=== PATIENT | female | born 1945 | race Caucasian/White ===

== ENCOUNTER 2017-12-31 09:04 | Day surgery (SDC) | payer MEDICARE, SELFPAY ==
--- NOTE | 2017-12-30 09:25 | POEE_ITS ---
History of Present Illness Chief Complaint: Progressive decreased vision, left eye Narrative: The patient is a 72-year-old female with history of progressive decreased vision in both eyes at both distance and near. She notes significant difficulty with glare. On examination she was noted to have moderate bilateral nuclear cataracts with best corrected vision of 20/50 OD, 20/50 OS. The option of cataract surgery was offered to the patient and she wished to proceed. NOTE: The Chief Complaint, HPI, Past Medical History, Past Surgical History, Family History, Social History, Medications, and complete Ophthalmic Exam with detailed Assessment and Plan have already been documented in the patient's outpatient ophthalmic record and are not covered again in detail here. [facility] Medical History Nuclear sclerotic cataract of left eye (Acute) Meds Home Medications Medication Instructions Recorded Confirmed Type albuterol sulfate 2.5 mg INHALATION PRN PRN 12/25/17 12/26/17 History albuterol sulfate [Ventolin HFA] 2 puff INHALATION QID 12/25/17 12/26/17 History aspirin [Aspir-Low] 81 mg PO DAILY 12/25/17 12/26/17 History lisinopril 40 mg PO DAILY 12/25/17 12/26/17 History nicotine 1 patch TRANSDERMAL DAILY 12/25/17 12/26/17 History nitroglycerin 0.4 mg SUBLINGUAL DIRECTED PRN 12/25/17 12/26/17 History Allergies Allergy/AdvReac Type Severity Reaction Status Date / Time No Known Allergies Allergy Unverified 12/25/17 09:36 Exam OCULAR EXAM:: Visual acuity at distance: Best corrected visual acuity 20/50 right eye, 20/50 left eye. Pupils: Pupils equal, round, and reactive without afferent pupillary defect IOP: 18 OD, 16 OS. Extraocular Motility: Normal Pertinent Slit Lamp Findings: Significant for 2+ nuclear cataracts OU. Pupils dilate to 5 mm OU. Dilated Funduscopic Examination: Disc cupping is 0.3 OU with normal vessels. There are fine drusen in both maculas with pigmentary changes. Peripheral retina and vitreous is normal OU. BRIGHTNESS ACUITY TESTING (BAT):: Off left eye 20/50 Low: 20/80 Medium: 20/100 High: 20/200 Assessment and Plan (1) Nuclear sclerotic cataract of left eye: Current visit: No Status: Acute Assessment: Visually significant cataract, left eye. Plan: Cataract extraction with intraocular lens implantation, left eye Note: NOTE:: The details of the planned surgery, including the risks, indications, limitations,expectations,outcome and possible complications were explained to the patient. The patient understands the complications including, but not limited to: infection, hemorrhage, posterior dislocation of the lens or nuclear fragments which may require the intervention of a vitreoretinal surgeon, possible loss of the eye, or from anesthetic complications. The patient has been made aware of the option of not having surgery, that vision following surgery may not be equal to that prior to surgery, and that the planned surgery may not achieve the intended results. Following this discussion, which the patient appeared to understand, the patient wishes to proceed with cataract surgery with lens implantation of the affected eye to improve and maximize vision.
[2017-12-31 09:20] VITALS: BP 156/87; PULSE 80; RESP 21; TEMP 36.9; O2SAT 98
[2017-12-31] MEDS: Lidocaine 2% Jelly 6 ML SYR (10:15)
[2017-12-31] MEDS: Lidocaine 1% Pres-Free 5 ML VIAL (10:18)
[2017-12-31] MEDS: Balanced Salt Soln.-PLUS 500 ML BAG (10:18)
[2017-12-31] MEDS: Povidone-Iodine Ophth 30 ML BTL (10:31)
--- NOTE | 2017-12-31 10:39 | W.PM.DSUDISC ---
Discharge Plan Discharge Details Attending Provider: Mitchell Umaña Primary Care Provider: Regina Murguia Home Meds and New Rx's Prescriptions: No Action aspirin [Aspir-Low] 81 mg Tablet,Delayed Release (Dr/Ec) 81 mg PO DAILY RF: 0 nicotine 21 mg/24 hr Patch 24 Hour 1 patch TRANSDERMAL DAILY RF: 0 nitroglycerin 0.4 mg Tablet, Sublingual 0.4 mg SUBLINGUAL DIRECTED PRNRF: 0 albuterol sulfate [Ventolin HFA] 90 mcg/actuation Hfa Aerosol Inhaler 2 puff INHALATION QID RF: 0 lisinopril 40 mg Tablet 40 mg PO DAILY RF: 0 albuterol sulfate 2.5 mg/0.5 mL Solution For Nebulization 2.5 mg INHALATION PRN PRNRF: 0 Discharge Instructions Stand Alone Forms: Post-op Topical Cataract, Galdino Ganey (DSU) DS: Diagnosis Discharge Diagnosis (1) Nuclear sclerotic cataract of left eye: Status: Resolved (2) Status post cataract extraction and insertion of intraocular lens of left eye: Status: Chronic
--- NOTE | 2017-12-31 10:40 | W.PM.OP ---
Date of service: 12/31/17 Time of Service: 10:40 Operative Note DATE OF PROCEDURE: 12/31/17 PRE-OP DIAGNOSIS: Cataract, left eye POST-OP DIAGNOSIS: same PROCEDURE: Cataract extraction using phacoemulsification with intraocular lens implant, left eye SURGEON: Mitchell Umaña ANESTHESIA: MAC and local (sub-tenon's anesthetic infiltration) PATHOLOGY: none sent COMPLICATIONS: None Patient was transported to: same day Patient's condition: stable Implants: Michael [employer] Michael [employer] / [employer] Tecnis [id number] Indications: Progressive decreased vision due to cataract, left eye Procedure Description: CATARACT SURGERY OPERATIVE REPORT PREOPERATIVE DIAGNOSIS: Nuclear cataract, left eye right POSTOPERATIVE DIAGNOSIS: Same OPERATION: Cataract extraction using phacoemulsification with posterior chamber intraocular lens implant, left eye. IOL: IOL Stock Parts Inspector/Model: J&J Vision / ANNIE Tecnis [id number] IOL Power: + 19.5 diopters IOL Serial Number: [id number] Optic Diameter: 6.0mm Haptic/Overall Diameter: 13.0mm PHACO INFO: Oliverio Active Circleurion Vision System with OZil and Active Fluidics Cumulative Dispersed Energy (CDE): 10.21 seconds SURGEON: Mitchell Umaña MD, RADHA ANESTHESIA: Monitored Anesthesia Care (MAC), with local sub-tenon's anesthetic infiltration COMPLICATIONS: None SPECIMENS: None INDICATIONS FOR PROCEDURE: The patient is a 72-year-old female with history of progressive decreased vision in her left eye. She is noted to have a moderate nuclear cataract in the left eye with visual acuity of 20/80. She is significantly symptomatically she desires cataract surgery and attempt to improve and maximize her vision. PROCEDURE: The correct surgical eye was identified and marked as the left eye and the pupil was dilated in the preoperative area using mydriatics, cycloplegics, and NSAIDS (except in aspirin allergic patients). The dilated pupil size was 6.0 mm. Oral sedation was administered in the form of an Imprimis MKO Melt (midazolam 3mg/ketamine 25mg/ondansetron 2mg). The patient was brought to the operating room where cardiopulmonary monitoring was instituted and surgical time-out was performed, confirming the correct operative eye and IOL power. Topical anesthesia was administered and ophthalmic povidone-iodine 5% was instilled into the conjunctival fornices. Lidocaine gel was applied to the cornea and the tremaine-ocular area was prepped with Betadine 10% solution and draped in the usual sterile fashion for intraocular surgery. Steri-strips were used to cover the lashes and lid margins and an adhesive eye drape was placed. Care was taken to isolate the lashes and lid margins under the Steri-strips and adhesive eye drape. A lid speculum was placed between the lids of the operative eye and the Trini-Danette operating microscope was maneuvered into position. Jomar scissors were then used to make a conjunctival buttonhole approximately 6mm posterior to the limbus in the inferonasal quadrant. Blunt dissection was carried out to expose bare sclera, and a blunt-tipped sub-tenon?s anesthesia cannula was introduced and passed posteriorly along the globe where non-preserved plain lidocaine was injected into posterior sub-Tenon?s space. A sideport knife was used to make a paracentesis port at the 12:00 postion and the anterior chamber was filled with Healon GV. A 2.4mm keratome knife was used to create a half-thickness groove at the limbus and then to construct a three-plane near-clear corneal tunnel extending 2.0mm into clear cornea at the 3:00 position. A flap was raised on the anterior capsule and capsulorhexis forceps were used to complete a continuous curvilinear capsulorhexis of 5.0 mm. Capsulorhexis was challenging due to constant eye movement. Balanced salt solution was then used to perform cortical cleaving hydrodissection and nuclear hydrodelineation until the lens could be freely rotated within the capsular bag. The lens nucleus was then disassembled and removed within the capsular bag and iris plane using phacoemulsification. Residual cortical material was removed using the 45-degree angled silicone I/A tip with 0.3mm port. The posterior capsule was carefully polished to remove as much residual lens epithelial cells as safely possible. The capsular bag was then inflated and the anterior chamber deepened with viscoelastic. The lens implant described above was inserted into the capsular bag using the ANNIE [place] Injector. A Kuglen hook was used to dial the IOL into position. Residual viscoelastic was then removed first from posterior to the IOL, then from the anterior chamber using the I/A handpiece. The lens implant was noted to center nicely within the capsular bag. The incisions were stromally hydrated, and the anterior chamber was reformed using BSS. Then 0.4cc of moxifloxacin 1.5mg/ml were injected into the capsular bag and anterior chamber. The incisions were checked with a Weck spear and found to be secure. Several drops of ophthalmic povidone-iodine 5% were then applied to the eye followed by two drops of Imprimis combination moxifloxacin/dexamethasone solution. The drapes were removed and a clear plastic protective eye shield was placed over the eye. The patient was then returned to Same Day Surgery in stable condition.
--- NOTE | 2017-12-31 10:43 | ROE_ITS ---
Date of service: 12/31/17 Time of Service: 10:40 Operative Note DATE OF PROCEDURE: 12/31/17 PRE-OP DIAGNOSIS: Cataract, left eye POST-OP DIAGNOSIS: same PROCEDURE: Cataract extraction using phacoemulsification with intraocular lens implant, left eye SURGEON: Mitchell Umaña ANESTHESIA: MAC and local (sub-tenon's anesthetic infiltration) PATHOLOGY: none sent COMPLICATIONS: None Patient was transported to: same day Patient's condition: stable Implants: Michael and Michael Vision / [employer] Tecnis [id number] Indications: Progressive decreased vision due to cataract, left eye Procedure Description: CATARACT SURGERY OPERATIVE REPORT PREOPERATIVE DIAGNOSIS: Nuclear cataract, left eye right POSTOPERATIVE DIAGNOSIS: Same OPERATION: Cataract extraction using phacoemulsification with posterior chamber intraocular lens implant, left eye. IOL: IOL Pathology Collector/Model: J&J Vision / ANNIE Tecnis ZCB00 IOL Power: + 19.5 diopters IOL Serial Number: [id number] Optic Diameter: 6.0mm Haptic/Overall Diameter: 13.0mm PHACO INFO: Oliverio 5 Minutesurion Vision System with OZil and Active Fluidics Cumulative Dispersed Energy (CDE): 10.21 seconds SURGEON: Mitchell Umaña MD, RADHA ANESTHESIA: Monitored Anesthesia Care (MAC), with local sub-tenon's anesthetic infiltration COMPLICATIONS: None SPECIMENS: None INDICATIONS FOR PROCEDURE: The patient is a 72-year-old female with history of progressive decreased vision in her left eye. She is noted to have a moderate nuclear cataract in the left eye with visual acuity of 20/80. She is significantly symptomatically she desires cataract surgery and attempt to improve and maximize her vision. PROCEDURE: The correct surgical eye was identified and marked as the left eye and the pupil was dilated in the preoperative area using mydriatics, cycloplegics, and NSAIDS (except in aspirin allergic patients). The dilated pupil size was 6.0 mm. Oral sedation was administered in the form of an Imprimis MKO Melt (midazolam 3mg/ketamine 25mg/ondansetron 2mg). The patient was brought to the operating room where cardiopulmonary monitoring was instituted and surgical time-out was performed, confirming the correct operative eye and IOL power. Topical anesthesia was administered and ophthalmic povidone-iodine 5% was instilled into the conjunctival fornices. Lidocaine gel was applied to the cornea and the tremaine-ocular area was prepped with Betadine 10% solution and draped in the usual sterile fashion for intraocular surgery. Steri-strips were used to cover the lashes and lid margins and an adhesive eye drape was placed. Care was taken to isolate the lashes and lid margins under the Steri-strips and adhesive eye drape. A lid speculum was placed between the lids of the operative eye and the Trini-Danette operating microscope was maneuvered into position. Jomar scissors were then used to make a conjunctival buttonhole approximately 6mm posterior to the limbus in the inferonasal quadrant. Blunt dissection was carried out to expose bare sclera, and a blunt-tipped sub-tenon? s anesthesia cannula was introduced and passed posteriorly along the globe where non-preserved plain lidocaine was injected into posterior sub-Tenon?s space. A sideport knife was used to make a paracentesis port at the 12:00 postion and the anterior chamber was filled with Healon GV. A 2.4mm keratome knife was used to create a half-thickness groove at the limbus and then to construct a three-plane near-clear corneal tunnel extending 2.0mm into clear cornea at the 3:00 position. A flap was raised on the anterior capsule and capsulorhexis forceps were used to complete a continuous curvilinear capsulorhexis of 5.0 mm. Capsulorhexis was challenging due to constant eye movement. Balanced salt solution was then used to perform cortical cleaving hydrodissection and nuclear hydrodelineation until the lens could be freely rotated within the capsular bag. The lens nucleus was then disassembled and removed within the capsular bag and iris plane using phacoemulsification. Residual cortical material was removed using the 45-degree angled silicone I/A tip with 0.3mm port. The posterior capsule was carefully polished to remove as much residual lens epithelial cells as safely possible. The capsular bag was then inflated and the anterior chamber deepened with viscoelastic. The lens implant described above was inserted into the capsular bag using the ANNIE [place] Injector. A Kuglen hook was used to dial the IOL into position. Residual viscoelastic was then removed first from posterior to the IOL, then from the anterior chamber using the I/A handpiece. The lens implant was noted to center nicely within the capsular bag. The incisions were stromally hydrated , and the anterior chamber was reformed using BSS. Then 0.4cc of moxifloxacin 1.5mg/ml were injected into the capsular bag and anterior chamber. The incisions were checked with a Weck spear and found to be secure. Several drops of ophthalmic povidone-iodine 5% were then applied to the eye followed by two drops of Imprimis combination moxifloxacin/dexamethasone solution. The drapes were removed and a clear plastic protective eye shield was placed over the eye. The patient was then returned to Same Day Surgery in stable condition.
[2017-12-31 11:15] VITALS: BP 138/82; PULSE 78; RESP 19; TEMP 36.2; O2SAT 95
== END 2017-12-31 11:18 | disposition home or self-care (01) ==
LOC: SUR 09:05
PROVIDERS: PCP Physician Assistant Medical; Visit Provider Ophthalmology
PROC: (CPT 66984; principal; 2017-12-31 11:30)
DX: H25.12 Age-related nuclear cataract, left eye (principal); G47.33 Obstructive sleep apnea (adult) (pediatric); J44.9 Chronic obstructive pulmonary disease, unspecified; I10 Essential (primary) hypertension; F17.210 Nicotine dependence, cigarettes, uncomplicated
CPT/HCPCS: 66984; V2632

== ENCOUNTER 2018-01-14 09:33 | Day surgery (SDC) | payer MEDICARE, SELFPAY ==
--- NOTE | 2018-01-13 16:45 | W.PIPPEYE ---
History of Present Illness Chief Complaint: Progressive decreased vision, right eye Narrative: The patient is a 72-year-old female with history of diminished visual acuity in both eyes at distance and near secondary to the development of bilateral nuclear cataracts. She notes significant difficulty reading and working on a computer, as well as difficulty with glare from bright lights. On examination best corrected visual acuity measured 20/50 in each eye in the presence of moderate nuclear cataracts. The option of cataract surgery was offered to the patient and she wished to proceed. She underwent cataract surgery in the left eye on 12/31/2017. Postoperatively she has regained uncorrected vision of 20/25 in the left eye. She now presents for cataract surgery in the right eye. NOTE: The Chief Complaint, HPI, Past Medical History, Past Surgical History, Family History, Social History, Medications, and complete Ophthalmic Exam with detailed Assessment and Plan have already been documented in the patient's outpatient ophthalmic record and are not covered again in detail here. [facility] Medical History Age-related macular degeneration, dry, left eye (Chronic) Age-related macular degeneration, dry, right eye (Chronic) Nuclear sclerotic cataract of right eye (Acute) Nuclear sclerotic cataract of left eye (Resolved) Social History Smoking/Tobacco Use Status: Current every day Surgical History Status post cataract extraction and insertion of intraocular lens of left eye (Chronic 12/31/17) Meds Home Medications Medication Instructions Recorded Confirmed Type albuterol sulfate 2.5 mg INHALATION PRN PRN 12/25/17 12/31/17 History albuterol sulfate [Ventolin HFA] 2 puff INHALATION QID 12/25/17 12/31/17 History aspirin [Aspir-Low] 81 mg PO DAILY 12/25/17 12/31/17 History lisinopril 40 mg PO DAILY 12/25/17 12/31/17 History nicotine 1 patch TRANSDERMAL DAILY 12/25/17 12/31/17 History nitroglycerin 0.4 mg SUBLINGUAL DIRECTED PRN 12/25/17 12/31/17 History Allergies Allergy/AdvReac Type Severity Reaction Status Date / Time No Known Allergies Allergy Unverified 12/31/17 09:26 Exam OCULAR EXAM:: Visual acuity at distance: Best corrected 20/50 right eye, 20/25 left eye Pupils: Pupils equal, round, and reactive without afferent pupillary defect IOP: 18 OD, 16 OS Extraocular Motility: Normal Pertinent Slit Lamp Findings: Significant for pupils dilating to 5 mm OU. Well-positioned PCIOL OS with clear posterior capsule. 2+ nuclear cataract OD. Dilated Funduscopic Examination: Disc cupping is 0.3 OU with good color. There are fine drusen and macular pigmentary changes in both eyes. Peripheral retina and vitreous are normal OU. BRIGHTNESS ACUITY TESTING (BAT):: Off right eye 20/60 Low: 20/70 Medium: 20/80 High: 20/100 Assessment and Plan (1) Nuclear sclerotic cataract of right eye: Current visit: No Status: Acute Assessment: Visually significant cataract, right eye. Plan: Cataract extraction with intraocular lens implantation, right eye Note: NOTE:: The details of the planned surgery, including the risks, indications,limitations,expectations,outcome and possible complications were explained to the patient. The patient understands the complications including, but not limited to: infection, hemorrhage, posterior dislocation of the lens or nuclear fragments which may require the intervention of a vitreoretinal surgeon, possible loss of the eye, or from anesthetic complications. The patient has been made aware of the option of not having surgery, that vision following surgery may not be equal to that prior to surgery, and that the planned surgery may not achieve the intended results. Following this discussion, which the patient appeared to understand, the patient wishes to proceed with cataract surgery with lens implantation of the affected eye to improve and maximize vision.
--- NOTE | 2018-01-13 16:51 | POEE_ITS ---
History of Present Illness Chief Complaint: Progressive decreased vision, right eye Narrative: The patient is a 72-year-old female with history of diminished visual acuity in both eyes at distance and near secondary to the development of bilateral nuclear cataracts. She notes significant difficulty reading and working on a computer, as well as difficulty with glare from bright lights. On examination best corrected visual acuity measured 20/50 in each eye in the presence of moderate nuclear cataracts. The option of cataract surgery was offered to the patient and she wished to proceed. She underwent cataract surgery in the left eye on 12/31/2017. Postoperatively she has regained uncorrected vision of 20/25 in the left eye. She now presents for cataract surgery in the right eye. NOTE: The Chief Complaint, HPI, Past Medical History, Past Surgical History, Family History, Social History, Medications, and complete Ophthalmic Exam with detailed Assessment and Plan have already been documented in the patient's outpatient ophthalmic record and are not covered again in detail here. [facility] Medical History Age-related macular degeneration, dry, left eye (Chronic) Age-related macular degeneration, dry, right eye (Chronic) Nuclear sclerotic cataract of right eye (Acute) Nuclear sclerotic cataract of left eye (Resolved) Social History Smoking/Tobacco Use Status: Current every day Surgical History Status post cataract extraction and insertion of intraocular lens of left eye ( Chronic 12/31/17) Meds Home Medications Medication Instructions Recorded Confirmed Type albuterol sulfate 2.5 mg INHALATION PRN PRN 12/25/17 12/31/17 History albuterol sulfate [Ventolin HFA] 2 puff INHALATION QID 12/25/17 12/31/17 History aspirin [Aspir-Low] 81 mg PO DAILY 12/25/17 12/31/17 History lisinopril 40 mg PO DAILY 12/25/17 12/31/17 History nicotine 1 patch TRANSDERMAL DAILY 12/25/17 12/31/17 History nitroglycerin 0.4 mg SUBLINGUAL DIRECTED PRN 12/25/17 12/31/17 History Allergies Allergy/AdvReac Type Severity Reaction Status Date / Time No Known Allergies Allergy Unverified 12/31/17 09:26 Exam OCULAR EXAM:: Visual acuity at distance: Best corrected 20/50 right eye, 20/25 left eye Pupils: Pupils equal, round, and reactive without afferent pupillary defect IOP: 18 OD, 16 OS Extraocular Motility: Normal Pertinent Slit Lamp Findings: Significant for pupils dilating to 5 mm OU. Well- positioned PCIOL OS with clear posterior capsule. 2+ nuclear cataract OD. Dilated Funduscopic Examination: Disc cupping is 0.3 OU with good color. There are fine drusen and macular pigmentary changes in both eyes. Peripheral retina and vitreous are normal OU. BRIGHTNESS ACUITY TESTING (BAT):: Off right eye 20/60 Low: 20/70 Medium: 20/80 High: 20/100 Assessment and Plan (1) Nuclear sclerotic cataract of right eye: Current visit: No Status: Acute Assessment: Visually significant cataract, right eye. Plan: Cataract extraction with intraocular lens implantation, right eye Note: NOTE:: The details of the planned surgery, including the risks, indications, limitations,expectations,outcome and possible complications were explained to the patient. The patient understands the complications including, but not limited to: infection, hemorrhage, posterior dislocation of the lens or nuclear fragments which may require the intervention of a vitreoretinal surgeon, possible loss of the eye, or from anesthetic complications. The patient has been made aware of the option of not having surgery, that vision following surgery may not be equal to that prior to surgery, and that the planned surgery may not achieve the intended results. Following this discussion, which the patient appeared to understand, the patient wishes to proceed with cataract surgery with lens implantation of the affected eye to improve and maximize vision.
[2018-01-14 09:46] VITALS: BP 147/76; PULSE 73; RESP 18; TEMP 36.2; O2SAT 96
[2018-01-14] MEDS: Tropicam./Phenyleph. (1/2.5%) 5 ML BTL OD ×3 (10:07→10:37)
[2018-01-14] MEDS: Tetracaine 0.5% 4 ML BTL OD ×4 (10:07→10:56)
[2018-01-14] MEDS: Lidocaine 2% Jelly 6 ML SYR (10:57)
[2018-01-14] MEDS: Balanced Salt Soln.-PLUS 500 ML BAG (11:01)
[2018-01-14] MEDS: Lidocaine 1% Pres-Free 5 ML VIAL (11:02)
[2018-01-14] MEDS: Triamcinolone 40 MG/ML VIAL (11:30)
[2018-01-14] MEDS: Povidone-Iodine Ophth 30 ML BTL (11:30)
--- NOTE | 2018-01-14 11:37 | W.PM.DSUDISC ---
Discharge Plan Discharge Details Attending Provider: Mitchell Umaña Primary Care Provider: Regina Murguia Home Meds and New Rx's Prescriptions: No Action aspirin [Aspir-Low] 81 mg Tablet,Delayed Release (Dr/Ec) 81 mg PO DAILY RF: 0 nicotine 21 mg/24 hr Patch 24 Hour 1 patch TRANSDERMAL DAILY RF: 0 nitroglycerin 0.4 mg Tablet, Sublingual 0.4 mg SUBLINGUAL DIRECTED PRNRF: 0 albuterol sulfate [Ventolin HFA] 90 mcg/actuation Hfa Aerosol Inhaler 2 puff INHALATION QID RF: 0 lisinopril 40 mg Tablet 40 mg PO DAILY RF: 0 albuterol sulfate 2.5 mg/0.5 mL Solution For Nebulization 2.5 mg INHALATION PRN PRNRF: 0 Discharge Instructions Stand Alone Forms: Post-op Topical Cataract, Galdino Brown (DSU) DS: Diagnosis Discharge Diagnosis (1) Nuclear sclerotic cataract of right eye: Status: Resolved (2) Status post cataract extraction and insertion of intraocular lens of right eye: Status: Chronic
--- NOTE | 2018-01-14 11:38 | W.PM.OP ---
Date of service: 01/14/18 Time of Service: 11:38 Operative Note DATE OF PROCEDURE: 01/14/18 PRE-OP DIAGNOSIS: Cataract, right eye POST-OP DIAGNOSIS: same SURGEON: Mitchell Umaña ANESTHESIA: MAC and local (sub-tenon's anesthetic infiltration) PATHOLOGY: none sent COMPLICATIONS: None Patient was transported to: same day Patient's condition: stable Implants: Michael [employer] / [employer] Tecnis ZCB00 Indications: Progressive decreased vision due to cataract, right eye Procedure Description: CATARACT SURGERY OPERATIVE REPORT PREOPERATIVE DIAGNOSIS: Nuclear cataract, right eye POSTOPERATIVE DIAGNOSIS: Same OPERATION: Cataract extraction using phacoemulsification with posterior chamber intraocular lens implant, right eye. IOL: IOL Machine Driller/Model: [employer] Vision / ANNIE Tecnis ZCB00 IOL Power: + 19.50 diopters IOL Serial Number: [id number] Optic Diameter: 6.0mm Haptic/Overall Diameter: 13.0mm PHACO INFO: Oliverio cloudswaveurion Vision System with OZil and Active Fluidics Cumulative Dispersed Energy (CDE): 10.69 seconds SURGEON: Mitchell Umaña MD, RADHA ANESTHESIA: Monitored Anesthesia Care (MAC), with local sub-tenon's anesthetic infiltration COMPLICATIONS: None SPECIMENS: None INDICATIONS FOR PROCEDURE: The patient is a 72-year old lady with history of diminished visual acuity in both eyes secondary to the development of bilateral nuclear cataracts. She also has some early macular degenerative changes. She has already undergone cataract surgery in the left eye on 12/31/2017. Postoperatively she has regained uncorrected visual acuity of 20/25 in the left eye. She now presents for cataract surgery in the right eye. PROCEDURE: The correct surgical eye was identified and marked as the right eye and the pupil was dilated in the preoperative area using mydriatics and cycloplegics. The dilated pupil size was 5.5 mm. Oral sedation was administered in the form of an Imprimis MKO Melt (midazolam 3mg/ketamine 25mg/ondansetron 2mg). The patient was brought to the operating room where cardiopulmonary monitoring was instituted and surgical time-out was performed, confirming the correct operative eye and IOL power. Topical anesthesia was administered and ophthalmic povidone-iodine 5% was instilled into the conjunctival fornices. Lidocaine gel was applied to the cornea and the tremaine-ocular area was prepped with Betadine 10% solution and draped in the usual sterile fashion for intraocular surgery. Steri-strips were used to cover the lashes and lid margins and an adhesive eye drape was placed. Care was taken to isolate the lashes and lid margins under the Steri-strips and adhesive eye drape. A lid speculum was placed between the lids of the operative eye and the Triin-Danette operating microscope was maneuvered into position. Jomar scissors were then used to make a conjunctival buttonhole approximately 6mm posterior to the limbus in the inferonasal quadrant. Blunt dissection was carried out to expose bare sclera, and a blunt-tipped sub-tenon?s anesthesia cannula was introduced and passed posteriorly along the globe where non-preserved plain lidocaine was injected into posterior sub-Tenon?s space. A sideport knife was used to make a paracentesis port at the 7:00 postion and the anterior chamber was filled with Healon GV. A 2.4mm keratome knife was used to create a half-thickness groove at the limbus and then to construct a three-plane near-clear corneal tunnel extending 2.0mm into clear cornea at the 10:00 position. A flap was raised on the anterior capsule and capsulorhexis forceps were used to complete a continuous curvilinear capsulorhexis of 4.5 mm. Patient of the capsulorhexis was challenging, as the patient's eye moved constantly. Forceps were used to fixate the globe during capsulorhexis creation. Balanced salt solution was then used to perform cortical cleaving hydrodissection and nuclear hydrodelineation until the lens could be freely rotated within the capsular bag. The lens nucleus was then disassembled and removed within the capsular bag and iris plane using phacoemulsification. The pupil constricted to 3 mm during phacoemulsification, making visualization difficult. Residual cortical material was removed using the 45-degree angled silicone I/A tip with 0.3mm port. The posterior capsule was carefully polished to remove as much residual lens epithelial cells as safely possible. The capsular bag was then inflated and the anterior chamber deepened with viscoelastic. The lens implant described above was inserted into the capsular bag using the ANNIE [place] Injector. A Kuglen hook was used to dial the IOL into position. Residual viscoelastic was then removed first from posterior to the IOL, then from the anterior chamber using the I/A handpiece. The lens implant was noted to center nicely within the capsular bag. The incisions were stromally hydrated, and the anterior chamber was reformed using BSS. Then 0.4cc of moxifloxacin 1.5mg/ml were injected into the capsular bag and anterior chamber. The incisions were checked with a Weck spear and found to be secure. Then, a 1 cc mixture of 20 mg of triamcinolone combined with 2.5 mg of moxifloxacin were injected into the posterior subtenon's space using the subtenons cannula. Several drops of ophthalmic povidone-iodine 5% were then applied to the eye followed by two drops of Imprimis combination moxifloxacin/dexamethasone solution. The drapes were removed and a clear plastic protective eye shield was placed over the eye. The patient was then returned to Same Day Surgery in stable condition.
--- NOTE | 2018-01-14 11:42 | ROE_ITS ---
Date of service: 01/14/18 Time of Service: 11:38 Operative Note DATE OF PROCEDURE: 01/14/18 PRE-OP DIAGNOSIS: Cataract, right eye POST-OP DIAGNOSIS: same SURGEON: Mitchell Umaña ANESTHESIA: MAC and local (sub-tenon's anesthetic infiltration) PATHOLOGY: none sent COMPLICATIONS: None Patient was transported to: same day Patient's condition: stable Implants: Michael [employer] Michael [employer] / [employer] Tecnis ZCB00 Indications: Progressive decreased vision due to cataract, right eye Procedure Description: CATARACT SURGERY OPERATIVE REPORT PREOPERATIVE DIAGNOSIS: Nuclear cataract, right eye POSTOPERATIVE DIAGNOSIS: Same OPERATION: Cataract extraction using phacoemulsification with posterior chamber intraocular lens implant, right eye. IOL: IOL Sewer Line Repairer/Model: J[employer]J Vision / ANNIE Tecnis ZCB00 IOL Power: + 19.50 diopters IOL Serial Number: [id number] Optic Diameter: 6.0mm Haptic/Overall Diameter: 13.0mm PHACO INFO: Oliverio GrupHediyeurion Vision System with OZil and Active Fluidics Cumulative Dispersed Energy (CDE): 10.69 seconds SURGEON: Mitchell Umaña MD, RADHA ANESTHESIA: Monitored Anesthesia Care (MAC), with local sub-tenon's anesthetic infiltration COMPLICATIONS: None SPECIMENS: None INDICATIONS FOR PROCEDURE: The patient is a 72-year old lady with history of diminished visual acuity in both eyes secondary to the development of bilateral nuclear cataracts. She also has some early macular degenerative changes. She has already undergone cataract surgery in the left eye on 12/31/2017. Postoperatively she has regained uncorrected visual acuity of 20/25 in the left eye. She now presents for cataract surgery in the right eye. PROCEDURE: The correct surgical eye was identified and marked as the right eye and the pupil was dilated in the preoperative area using mydriatics and cycloplegics. The dilated pupil size was 5.5 mm. Oral sedation was administered in the form of an Imprimis MKO Melt (midazolam 3mg/ketamine 25mg/ ondansetron 2mg). The patient was brought to the operating room where cardiopulmonary monitoring was instituted and surgical time-out was performed, confirming the correct operative eye and IOL power. Topical anesthesia was administered and ophthalmic povidone-iodine 5% was instilled into the conjunctival fornices. Lidocaine gel was applied to the cornea and the tremaine-ocular area was prepped with Betadine 10% solution and draped in the usual sterile fashion for intraocular surgery. Steri-strips were used to cover the lashes and lid margins and an adhesive eye drape was placed. Care was taken to isolate the lashes and lid margins under the Steri-strips and adhesive eye drape. A lid speculum was placed between the lids of the operative eye and the Trini-Danette operating microscope was maneuvered into position. Jomar scissors were then used to make a conjunctival buttonhole approximately 6mm posterior to the limbus in the inferonasal quadrant. Blunt dissection was carried out to expose bare sclera, and a blunt-tipped sub-tenon? s anesthesia cannula was introduced and passed posteriorly along the globe where non-preserved plain lidocaine was injected into posterior sub-Tenon?s space. A sideport knife was used to make a paracentesis port at the 7:00 postion and the anterior chamber was filled with Healon GV. A 2.4mm keratome knife was used to create a half-thickness groove at the limbus and then to construct a three-plane near-clear corneal tunnel extending 2.0mm into clear cornea at the 10:00 position. A flap was raised on the anterior capsule and capsulorhexis forceps were used to complete a continuous curvilinear capsulorhexis of 4.5 mm. Patient of the capsulorhexis was challenging, as the patient's eye moved constantly. Forceps were used to fixate the globe during capsulorhexis creation. Balanced salt solution was then used to perform cortical cleaving hydrodissection and nuclear hydrodelineation until the lens could be freely rotated within the capsular bag. The lens nucleus was then disassembled and removed within the capsular bag and iris plane using phacoemulsification. The pupil constricted to 3 mm during phacoemulsification, making visualization difficult. Residual cortical material was removed using the 45-degree angled silicone I/A tip with 0.3mm port. The posterior capsule was carefully polished to remove as much residual lens epithelial cells as safely possible. The capsular bag was then inflated and the anterior chamber deepened with viscoelastic. The lens implant described above was inserted into the capsular bag using the ANNIE [place] Injector. A Kuglen hook was used to dial the IOL into position. Residual viscoelastic was then removed first from posterior to the IOL, then from the anterior chamber using the I/A handpiece. The lens implant was noted to center nicely within the capsular bag. The incisions were stromally hydrated , and the anterior chamber was reformed using BSS. Then 0.4cc of moxifloxacin 1.5mg/ml were injected into the capsular bag and anterior chamber. The incisions were checked with a Weck spear and found to be secure. Then, a 1 cc mixture of 20 mg of triamcinolone combined with 2.5 mg of moxifloxacin were injected into the posterior subtenon's space using the subtenons cannula. Several drops of ophthalmic povidone-iodine 5% were then applied to the eye followed by two drops of Imprimis combination moxifloxacin/dexamethasone solution. The drapes were removed and a clear plastic protective eye shield was placed over the eye. The patient was then returned to Same Day Surgery in stable condition.
[2018-01-14 11:55] VITALS: BP 136/79; PULSE 68; RESP 16; TEMP 37; O2SAT 97
== END 2018-01-14 12:10 | disposition home or self-care (01) ==
LOC: SUR 09:34
PROVIDERS: PCP Physician Assistant Medical; Visit Provider Ophthalmology
PROC: (CPT 66984; principal; 2018-01-14 12:30)
DX: H25.11 Age-related nuclear cataract, right eye (principal); Z98.42 Cataract extraction status, left eye; Z96.1 Presence of intraocular lens; G47.33 Obstructive sleep apnea (adult) (pediatric); J44.9 Chronic obstructive pulmonary disease, unspecified; I10 Essential (primary) hypertension; F17.210 Nicotine dependence, cigarettes, uncomplicated
CPT/HCPCS: 66984; V2632